=== PATIENT | female | born 1965 | race Caucasian/White ===

== ENCOUNTER 2020-10-02 17:59 | Emergency (ER) | payer OTHER, SELFPAY ==
[2020-10-02 18:08] VITALS: BP 166/90; PULSE 77; RESP 16; TEMP 36.4; O2SAT 97; BMI 23.0
[2020-10-02 18:28] LABS: Appearance Urine UA CLEAR; Bacteria Urine None Seen; Bilirubin Urine UA NEGATIVE (NEGATIVE); Color Urine UA YELLOW; Glucose Urine UA NEGATIVE (Negative); Ketones Urine UA NEGATIVE (NEGATIVE); Leukocyte Esterase Urine UA NEGATIVE (NEGATIVE); Nitrite Urine UA NEGATIVE (Negative); Occult Blood Urine UA 1+ (Negative); Protein Urine UA NEGATIVE (Negative); Urobilinogen Urine UA 0.2 E.U./dL (0.2)
[2020-10-02 18:40] LABS: Culture Indicated Urine Cult Not Indicated; RBC Urine 1-5/HPF (0-5/HPF); Squamous Epithelial Cell Urine 0-1 /HPF (0-5/HPF); WBC Urine 0-1/HPF (0-5/HPF); pH Urine UA 7.5 (4.5-8.0)
--- NOTE | 2020-10-02 19:04 | ED_ITS ---
HPI - Female Genitourinary General Chief complaint: Urogenital-Female Stated complaint: NOT MUCH URINE CAME OUT TODAY Time Seen by Provider: 10/02/20 19:04 Source: patient Mode of arrival: Ambulatory Limitations: no limitations History of Present Illness HPI Narrative: This is a 55-year-old female comes emergency department with complaint of right flank pain started in the last 24 hours. That has improved after being treated with Vicodin but patient developed abdominal pain. In the interim patient had not had much urine output, she went to the clinic on [address] place to urinary catheter. They felt like her urine output was not as good as they would have liked. Did appear that she had some hematuria but no obvious infection on their analysis. Patient has been afebrile. She has had some nausea and occasional dry heaves but no active emesis. She states she has been developing increasing abdominal pain and now discomfort that is moved up her abdomen. She states this feels similar to when she had a bladder perforation. Patient states that she has continued to have urine output and she arrived with indwelling Lu catheter. She had normal bowel movement today. No melena, no hematochezia. 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 She had further workup with Urology. This all took place in [place] at [facility] and then transferred care to the [facility]. Patient states she had some surveillance but did not continue to complete all of her Urology follow-up. She does take medication for migraines, she has a history of GERD, bladder mass. She currently denies other prior surgical history. She is living on [address] with her . She denies any tobacco, alcohol or illicit. Related Data Allergies Allergy/AdvReac Type Severity Reaction Status Date / Time amitriptyline AdvReac Verified 10/02/20 19:43 blood thinners AdvReac Uncoded 10/02/20 19:44 Review of Systems Review of Systems ROS Unobtainable: All systems reviewed & are unremarkable except as noted in HPI and below Patient History Substance Use Type: does not use Exam Narrative Exam Narrative: GENERAL: Alert and oriented x three, then well-nourished female in mild distress. HEENT: Head normocephalic, atraumatic, EOMI, pupils reactive, face symmetric, moist mucous membranes NECK: Supple, full range of motion CARDIOVASCULAR: Regular rate and rhythm without murmurs, rubs or gallops. RESPIRATORY: Breath sounds equal bilaterally, no wheezes rales or rhonchi. ABDOMEN: Soft, moderate abdominal discomfort particularly suprapubic but the bilateral lower quadrants. Normoactive bowel sounds all 4 quadrants. No guarding or rebound, rigidity, no mass : No CVA tenderness. Patient does have a Lu catheter in place draining clear urine. EXTREMITIES: Normal range of motion, no clubbing or edema. Neurovascularly intact NEUROLOGICAL: Cranial nerves II through XII grossly intact. Moving all extremities SKIN: Warm, dry, no petechiae, no rashes or lesions. Initial Vital Signs Initial Vital Signs: Vital Signs Temperature 97.6 F 10/02/20 18:08 Pulse Rate 77 10/02/20 18:08 Respiratory Rate 16 10/02/20 18:08 Blood Pressure 166/90 H 10/02/20 18:08 Pulse Oximetry 97 10/02/20 18:08 Course Orders Ordered: Discontinued Medications Sodium Chloride (Normal Saline 0.9%) 1,000 mls @ 1,000 mls/hr IV BOLUS ONE Stop: 10/02/20 20:29 Last Infusion: 10/02/20 21:00 Dose: 0 mls/hr Documented by: Admin: 10/02/20 19:49 Dose: 1,000 mls/hr Documented by: DARIEN Ketorolac Tromethamine (Ketorolac 60 Mg/2 Ml Vial) 15 mg IV NOW ONE Stop: 10/02/20 19:31 Last Admin: 10/02/20 19:49 Dose: 15 mg Documented by: DARIEN Reevaluation(s) Reevaluation #1: Patient is comfortable. Reviewed the patient's findings with her including labs, imaging and urine. Discussed that her bilirubin is elevated today. She was aware that she had hepatic masses, she states she had an MRI around 2013 and that at that time they felt they were likely benign and she has not had any further follow-up. We do not have these images available to us today. We discussed her hematuria could be secondary to infection although less likely and her urine had urine culture ordered. We also discussed that hematuria can be from inflammation or other causes and she needs recheck of her urine and follow-up. Urology referral was given if she requires this. Patient feels comfortable returning home at this time. She was concerned about her renal function. We discussed her GFR is appropriate range today but was given the level in her discharge paperwork. Patient was also encouraged to follow up she states that the mass on her bladder pathology was benign but if she did not complete her surveillance would be appropriate to follow-up. Time: 21:33 Vital Signs Vital signs: Vital Signs - 8 hr 10/02/20 18:08 Temperature 97.6 F Pulse Rate 77 Respiratory Rate 16 Blood Pressure 166/90 H Pulse Oximetry 97 MDM - Female Genitourinary Lab Data Attestation: I reviewed the patient's lab results. Result diagrams: 10/02/20 19:45 10/02/20 19:45 Labs: Lab Results 10/02/20 10/02/20 10/02/20 Range/Units 18:18 19:45 19:45 WBC 6.7 (4.5-11.0) X10^3/uL RBC 4.66 (4.0-5.2) X10^6/uL Hgb 13.1 (12.0-16.0) g/dL Hct 40.0 (36-46) % MCV 85.8 (80-100) fL MCH 28.2 (26-34) PG MCHC 32.8 (30-36) % RDW 13.7 (11.6-14.8) % Plt Count 241 (150-400) X10^3/uL Neut % (Auto) 44.1 L (50-75) % Lymph % (Auto) 46.2 H (25-40) % Kaufman % (Auto) 7.1 (3-14) % Eos % (Auto) 2.1 (2-4) % Baso % (Auto) 0.5 (0-2) % Neut # (Auto) 2900 (4236-0463) /uL Lymph # (Auto) 3100 (5693-5213) /uL Kaufman # (Auto) 500 (0-900) /uL Eos # (Auto) 100 (0-450) /uL Baso # (Auto) 0 (0-100) /uL Sodium 133 L (137-145) mmol/L Potassium 3.4 (3.4-5.1) mmol/L Chloride 99 (98-107) mmol/L Carbon Dioxide 26 (22-32) mmol/L BUN 7 (7-17) mg/dL Creatinine 0.64 (0.52-1.04) mg/dL Estimated GFR > 60.0 (>60) mL/min BUN/Creatinine Ratio 10.9 (6-22) Glucose 97 (70-100) mg/dL Calcium 9.9 (8.4-10.2) mg/dL Total Bilirubin 1.4 H (0.2-1.3) mg/dL AST 28 (14-36) IU/L ALT 16 (<35) IU/L Alkaline Phosphatase 107 (38-126) U/L Total Protein 7.8 (6.3-8.2) g/dL Albumin 4.5 (3.5-5.0) g/dL Globulin 3.3 (1.7-4.1) g/dL Albumin/Globulin Ratio 1.4 (1.0-2.8) Lipase 89 (23-300) U/L Urine Color Yellow Urine Appearance Clear Urine pH 7.5 (4.5-8.0) Ur Specific Ingalls 1.010 (1.000-1.035) Urine Protein Negative (Negative) Urine Glucose (UA) Negative (Negative) g/dL Urine Ketones Negative (NEGATIVE) Urine Occult Blood 1+ H (Negative) Urine Nitrate Negative (Negative) Urine Bilirubin Negative (NEGATIVE) Urine Urobilinogen 0.2 (0.2) E.U./dL Ur Leukocyte Esterase Negative (NEGATIVE) Urine RBC 1-5/hpf (0-5/HPF) Urine WBC 0-1/hpf (0-5/HPF) Ur Squamous Epith Cells 0-1 /hpf (0-5/HPF) Urine Bacteria None seen (None) Ur Culture Indicated? Cult not indicated Imaging Data CT scan - abdomen/pelvis: Radiologist's Impression: [address] [id number] Scan ReportSigned Patient: Caitlyn Perry LMR#: [id number]: 1965Acct:[id number]/Sex: 55 / FDate of Service: 10/02/20Loc: EDAccession Number: [id number] Procedure: CT abdomen pelvis wo con Ordering Provider: Priscila Baldwin D.O. PROCEDURE: CT ABDOMEN PELVIS WO CON INDICATIONS: r flank pain, improved, abd pain, hx bladder perf/mass 2004 TECHNIQUE: Noncontrast 5 mm thick sections acquired from the diaphragms to the symphysis. 5 mm coronal and sagittal reformats were then performed. For radiation dose reduction, the following was used: automated exposure control, adjustment of mA and/or kV according to patient size. COMPARISON: None. FINDINGS: Image quality: Excellent. ABDOMEN: Lung bases: There is mild dependent atelectasis or scarring in the lung bases.. Heart size is normal. Solid organs: There is an oval mass in segment 8 of the right hepatic lobe measuring up to 3.2 x 3.1 cm on series 2, image 9. More inferiorly within segment 5 of the right lobe, there is a peripheral subcapsular mass measuring 1.9 x 1.9 cm in transverse dimension on image 17. In segment 2 of the left hepatic lobe, there is a lobulated mass measuring 3.3 x 2.2 cm on image 8. Gallbladder appears within normal limits without calcified gallstones. Pancreas is normal in contours without peripancreatic fat stranding or fluid collections. Spleen is normal in size. No adrenal nodules. Kidneys demonstrate no hydronephrosis. There is a small nonobstructing stone within the left kidney measuring up to 0.2 cm. Peritoneum and bowel: Unenhanced bowel loops demonstrate normal wall thickness and caliber. No evidence of appendicitis. There is colonic diverticulosis without acute diverticulitis. No free fluid or air. Nodes and vessels: No retroperitoneal or mesenteric adenopathy by size criteria. Aorta and inferior vena cava are normal in caliber. Miscellaneous: No ventral hernias. PELVIS: Genitourinary: Bladder wall thickness is normal. There is a Lu catheter within a partially distended urinary bladder. Intraluminal gas within the bladder is likely related to catheter placement. Miscellaneous: No inguinal hernias or adenopathy. Bones: No suspicious bony lesions. No vertebral body compression fractures. IMPRESSION: 1. Multiple solid hepatic mass lesions demonstrated in the right and left lobes. The findings are nonspecific but are suspicious of neoplasm, such as metastatic disease. Recommend further evaluation with a liver protocol MRI or CT when clinically feasible. 2. Left nephrolithiasis without evidence of obstructive uropathy. 3. No evidence of appendicitis. Dictated by: Gulshan Wolff M.D. on 10/02/2020 at 21:03 Approved by: Gulshan Wolff M.D. on 10/02/2020 at 21:07 [facility] Narrative Medical decision making narrative: This is a 55-year-old female who comes in with concern for decreased urine output although she had 600 mL in the Lu catheter bag that was placed today. Patient's labs show an elevated bilirubin. Her imaging shows hepatic masses. Patient states that she was notified about these she did have an MRI around 2013 she has not followed up any additional for these. She also had a bladder mass which she was told was benign and had resulted in a perforation during the evaluation of this. Her abdominal CT otherwise does not show acute findings. Her urine does not show obvious signs of infection. Plan to have patient follow-up. She does have hematuria and if this continues she was told that she needs UA for recheck to rule out microscopic hematuria and if that is continuing needs follow-up with Urology s pecifically. Patient expresses her understanding she felt comfortable returning home she is much more comfortable at this time. Discharge Plan Departure Patient Disposition: Home Clinical Impression: Abdominal pain, Liver masses, Elevated bilirubin Activity Restrictions/Additional Instructions: Follow up with her physician for recheck. It is recommended that you have an MRI to evaluate the lesions on your liver. As you are aware that these were present from before, if her able to find out where your prior images were obtained they can potentially get a report for comparison. You did have hematuria or blood in your urine. Your urine was sent for culture if this is positive for infection you will be contacted to start antibiotics. There is no obvious sign of infection today. You should have your urine rechecked in 7-10 days to make sure that the blood or hematuria is no longer occurring. If you are continuing to have this you may need cystoscopy or further follow-up with Urology. Today your bilirubin is elevated at 1.4. Her other liver enzymes are normal. Your GF are is greater than 60. With a creatinine of 0.64 Follow-up with your physician this week for recheck and order imaging for evaluation of the lesions on her liver. Also included is a referral to Urology if he would like to follow-up. Take her medication as prescribed. Return to the emergency department for fevers, recurrent abdominal, back or flank pain, persistent vomiting, black or bloody stools, inability to urinate or other new or concerning symptoms. Referrals: Luana Chu MD [Physician] -
--- NOTE | 2020-10-02 19:31 | DI.CT.S_ITS ---
PROCEDURE: CT ABDOMEN PELVIS WO CON INDICATIONS: r flank pain, improved, abd pain, hx bladder perf/mass 2004 TECHNIQUE: Noncontrast 5 mm thick sections acquired from the diaphragms to the symphysis. 5 mm coronal and sagittal reformats were then performed. For radiation dose reduction, the following was used: automated exposure control, adjustment of mA and/or kV according to patient size. COMPARISON: None. FINDINGS: Image quality: Excellent. ABDOMEN: Lung bases: There is mild dependent atelectasis or scarring in the lung bases.. Heart size is normal. Solid organs: There is an oval mass in segment 8 of the right hepatic lobe measuring up to 3.2 x 3.1 cm on series 2, image 9. More inferiorly within segment 5 of the right lobe, there is a peripheral subcapsular mass measuring 1.9 x 1.9 cm in transverse dimension on image 17. In segment 2 of the left hepatic lobe, there is a lobulated mass measuring 3.3 x 2.2 cm on image 8. Gallbladder appears within normal limits without calcified gallstones. Pancreas is normal in contours without peripancreatic fat stranding or fluid collections. Spleen is normal in size. No adrenal nodules. Kidneys demonstrate no hydronephrosis. There is a small nonobstructing stone within the left kidney measuring up to 0.2 cm. Peritoneum and bowel: Unenhanced bowel loops demonstrate normal wall thickness and caliber. No evidence of appendicitis. There is colonic diverticulosis without acute diverticulitis. No free fluid or air. Nodes and vessels: No retroperitoneal or mesenteric adenopathy by size criteria. Aorta and inferior vena cava are normal in caliber. Miscellaneous: No ventral hernias. PELVIS: Genitourinary: Bladder wall thickness is normal. There is a Lu catheter within a partially distended urinary bladder. Intraluminal gas within the bladder is likely related to catheter placement. Miscellaneous: No inguinal hernias or adenopathy. Bones: No suspicious bony lesions. No vertebral body compression fractures. IMPRESSION: 1. Multiple solid hepatic mass lesions demonstrated in the right and left lobes. The findings are nonspecific but are suspicious of neoplasm, such as metastatic disease. Recommend further evaluation with a liver protocol MRI or CT when clinically feasible. 2. Left nephrolithiasis without evidence of obstructive uropathy. 3. No evidence of appendicitis. Dictated by: Gulshan Wolff M.D. on 10/02/2020 at 21:03 Approved by: Gulshan Wolff M.D. on 10/02/2020 at 21:07
[2020-10-02] MEDS: KETOROLAC 60 MG/2 ML VIAL 15 MG IV (19:49)
[2020-10-02] MEDS: SODIUM CHLORIDE 0.9% 1,000 ML 1000 ML IV (19:49)
[2020-10-02 19:54] LABS: Add Manual Diff / Slide Review NO; Basophils Absolute Auto 0 /uL (0-100); Basophils Percent Auto 0.5 % (0-2); Eosinophils Absolute Auto 100 /uL (0-450); Eosinophils Percent Auto 2.1 % (2-4); Hemoglobin 13.1 g/dL (12.0-16.0); Lymphocytes Absolute Auto 3100 /uL (1100-4500); Lymphocytes Percent Auto 46.2 % (25-40); Mean Corpuscular HGB Conc 32.8 % (30-36); Mean Corpuscular Hemoglobin 28.2 PG (26-34); Mean Corpuscular Volume 85.8 fL (80-100); Monocytes Absolute Auto 500 /uL (0-900); Monocytes Percent Auto 7.1 % (3-14); Neutrophils Absolute Auto 2900 /uL (1500-7000); Neutrophils Percent Auto 44.1 % (50-75); Platelet Count 241 X10^3/uL (150-400); Red Blood Cell Count 4.66 X10^6/uL (4.0-5.2); Red Cell Distribution Width 13.7 % (11.6-14.8); White Blood Cell Count 6.7 X10^3/uL (4.5-11.0)
[2020-10-02 20:08] LABS: Alanine Aminotransferase 16 IU/L (<35); Albumin 4.5 g/dL (3.5-5.0); Albumin Globulin Ratio 1.4 (1.0-2.8); Alkaline Phosphatase 107 U/L (38-126); Aspartate Aminotransferase 28 IU/L (14-36); BUN Creatinine Ratio 10.9 (6-22); Bilirubin Total 1.4 mg/dL (0.2-1.3); Blood Urea Nitrogen 7 mg/dL (7-17); Calcium 9.9 mg/dL (8.4-10.2); Carbon Dioxide 26 mmol/L (22-32); Chloride 99 mmol/L (98-107); Estimated Glomerular Filt Rate > 60.0 mL/min (>60); Globulin 3.3 g/dL (1.7-4.1); Glucose 97 mg/dL (70-100); HEMOLYSIS < 15 (0-50); Lipase 89 U/L (23-300); Potassium 3.4 mmol/L (3.4-5.1); Sodium 133 mmol/L (137-145); Total Protein 7.8 g/dL (6.3-8.2)
[2020-10-02 21:49] VITALS: BP 122/69; PULSE 72; RESP 14; O2SAT 97
== END 2020-10-02 21:51 | disposition home or self-care (01) ==
PROVIDERS: Emergency Provider Emergency Medicine
DX: K76.89 Other specified diseases of liver (principal); R10.9 Unspecified abdominal pain
CPT/HCPCS: 36415; 74176; 80053; 81001; 83690; 85025; 96361; 96374; 99283; 99284; J1885

== ENCOUNTER → 2020-11-03 13:28 | Outpatient (CLI) | payer OTHER, SELFPAY ==
--- NOTE | 2020-11-03 | DI.MRI.S_ITS ---
PROCEDURE: MR CERVICAL SPINE WO CON INDICATIONS: cervicalgia TECHNIQUE: Noncontrast sagittal T1 spin echo and T2 fast spin echo, sagittal STIR, foraminal oblique sagittal T2 fast spin echo, and axial gradient echo or T2 fast spin echo through the cervical spine. COMPARISON: [facility], CR, XR CERVICAL SPINE 6+ VIEWS, 10/19/2020, 11:05. FINDINGS: Image quality: Excellent. Alignment and Curvature: There is reversal cervical curvature with apex at C5-6. There is trace anterolisthesis of C4 on C5, trace retrolisthesis of C5 on C6, C6-C7. Bone Marrow: Marrow demonstrates normal overall signal. Spinal Cord: Visualized spinal cord has normal size and signal. No cerebellar tonsillar herniation. Paraspinous Soft Tissues: No paravertebral masses. Prevertebral soft tissues are normal in thickness. Discs: Moderate to severe desiccation is present throughout the cervical spine most severe at C4-5 through C6-7. C2-C3: No disc bulge or spinal stenosis. [id number] left and minimal right foraminal narrowing with uncovertebral hypertrophy. C3-C4: Minimal disc bulge without spinal stenosis. Moderate left foraminal narrowing with uncovertebral hypertrophy. C4-C5: Mild disc bulge with moderate spinal stenosis. Moderate to severe bilateral foraminal narrowing with asymmetrically prominent right uncovertebral hypertrophy. C5-C6: Mild disc bulge with moderate spinal stenosis. Moderate bilateral foraminal narrowing, left greater than right with uncovertebral hypertrophy. C6-C7: Mild disc bulge with moderate spinal stenosis. Moderate to severe bilateral foraminal narrowing, left greater than right with uncovertebral hypertrophy. C7-T1: Minimal disc bulge with small posterior central superimposed protrusion. No spinal stenosis. Mild bilateral foraminal narrowing. IMPRESSION: 1. Marked reversal cervical curvature. 2. Multilevel spinal stenosis most notable at C4-5 through C6-7 secondary to disc bulge with contributing effect of reversal cervical curvature. 3. Multilevel foraminal narrowing most severe at C4-5 and C6-7 predominantly secondary to uncovertebral arthropathy. Dictated by: Ladi Holloway M.D. on 11/03/2020 at 15:10 Approved by: Ladi Holloway M.D. on 11/03/2020 at 15:14
== END ==
PROVIDERS: PCP Nurse Practitioner Family; Referring Provider Physical Medicine & Rehabilitation Pain Medicine; Visit Provider Physical Medicine & Rehabilitation Pain Medicine
DX: M54.2 Cervicalgia (principal); M48.02 Spinal stenosis, cervical region
CPT/HCPCS: 72141

== ENCOUNTER → 2022-08-05 08:22 | Outpatient (CLI) | payer OTHER, SELFPAY ==
--- NOTE | 2022-08-05 | DI.US.S_ITS ---
PROCEDURE: US PELVIC COMPLETE INDICATIONS: POSTMENOPAUSAL BLEEDING. HISTORY OF FIBROIDS. NO HRT. TECHNIQUE: Real-time scanning was performed of the pelvic organs, with image documentation. Additional endovaginal scanning was necessary due to incomplete visualization of the adnexal and endometrial structures by transabdominal scanning. COMPARISON: [facility], CT, CT ABDOMEN PELVIS WO CON, 10/02/2020, 19:42. FINDINGS: Uterus: Uterus is retroverted and normal in size at 6.2 x 2.8 cm. The myometrium is heterogeneous. The endometrium measures 5.0 mm combined thickness. There is a 2 mm hyperechoic nodule in the uterine fundus within the endometrium, demonstrating no internal vascularity on Doppler ultrasound. There are multiple uterine fibroids. There is a 2.1 x 1.9 x 1.6 cm subserosal fibroid in the right anterior uterine wall. There is a 1.6 x 1.6 x 1.3 cm subserosal fibroid in the right anterior lower uterine segment/cervix. New line there is a 1.6 x 1.7 x 1.2 cm intramural fibroid in the fundus at midline. Ovaries: The right ovary measures 2.9 x 1.6 x 1.3 cm, with a calculated ovarian volume of 3.2 cc. The left ovary measures 2.6 x 1.1 x 1.3 cm, with a calculated ovarian volume of 1.9 cc. The ovaries have a normal sonographic appearance. Less than 12 follicles can be seen in each ovary. No adnexal masses are seen. There are numerous tiny foci of calcifications in ovaries bilaterally. Other: No pathologic free abdominal or pelvic fluid. IMPRESSION: 1. Endometrium is borderline thickened measuring 5 mm. In a postmenopausal woman with vaginal bleeding, endometrial sampling is suggested. 2. A 2 mm hyperechoic focus without vascularity is seen in the endometrium in the uterine fundus. Differential diagnoses are a small endometrial polyp, small submucosal fibroid and synechia. If clinically indicated, saline infusion hysterosonogram would be helpful. 3. Multiple uterine fibroids. 4. Multiple tiny foci of calcifications in ovaries bilaterally, nonspecific and indeterminate in clinical significance. We strive to produce accurate, complete, and clear reports of imaging services. To assist us in improving patient care, this report was composed using standard report templates and voice recognition software. Therefore, it may contain abnormal punctuation, insertions and/or omissions. Occasional wrong-word or sound-alike substitutions may occur. Though we review the report and make efforts to correct it, we do recommend that the report be read carefully in proper context to recognize any text inaccuracies. Dictated by: Kody Talamantes M.D. on 08/05/2022 at 14:46 Approved by: Kody Talamantes M.D. on 08/05/2022 at 15:08
--- NOTE | 2022-08-05 | DI.US.S_ITS ---
PROCEDURE: US THYROID INDICATIONS: Nontoxic diffuse goiter TECHNIQUE: Real-time scanning was performed of the thyroid gland, with image documentation. COMPARISON: [facility], US, US THYROID, 10/26/2020, 10:30. FINDINGS: Right: Thyroid lobe measures 6.0 x 2.2 x 1.8 cm, and is heterogeneous in echotexture. Left: Thyroid lobe measures 5.3 x 1.9 x 1.5 cm, and is heterogeneous in echotexture. Isthmus: 3 mm thick. Nodule number: 1 Location: Right lobe, mid. Size: 0.7 x 0.6 x 0.4 cm. Previously 0.7 x 0.4 x 0.6 cm no significant change Composition: Solid Echogenicity: Hypoechoic Shape: wider than tall. Margins: Smooth Echogenic foci: None Total points: 4 ACR TI-RADS category: 4 IMPRESSION: 1. No significant change in the previously demonstrated sub cm nodule in the right lobe of the thyroid gland. The nodule does not meet TI-RADS criteria for FNA recommendation or continued imaging follow-up. 2. No new thyroid nodules identified. 3. Nonspecific heterogeneous appearance of the thyroid gland, could indicate sequela of a thyroiditis. ACR TI-RADS definitions and recommendations: TI-RADS 1 (benign): 0 points. FNA not needed. TI-RADS 2 (not suspicious): 2 points. FNA not needed. TI-RADS 3 (mildly suspicious): 3 points. * FNA if 2.5 cm or larger, follow up if 1.5 cm or larger (at 1, 3, and 5 years). TI-RADS 4 (moderately suspicious): 4-6 points. * FNA if 1.5 cm or larger, follow up if 1 cm or larger (at 1, 2, 3, and 5 years). TI-RADS 5 (highly suspicious): 7 points or more. * FNA if 1 cm or larger, follow up if 0.5 cm or larger (every year for 5 years). Dictated by: Marcio Joya M.D. on 08/05/2022 at 13:11 Approved by: Marcio Joya M.D. on 08/05/2022 at 13:14
== END ==
PROVIDERS: PCP Nurse Practitioner Family; Referring Provider Nurse Practitioner Family; Visit Provider Nurse Practitioner Family
DX: N95.0 Postmenopausal bleeding (principal); D25.2 Subserosal leiomyoma of uterus; D25.1 Intramural leiomyoma of uterus; E04.1 Nontoxic single thyroid nodule
CPT/HCPCS: 76536; 76830; 76856